=== PATIENT | male | born 1980 | race Caucasian/White ===

== ENCOUNTER 2016-11-13 07:38 | Emergency (ER) | payer OTHER ==
[~2016-11-13] VITALS: Ht 198.1 cm; Wt 130.0 kg
[~2016-11-13 07:38] MED LIST: PERC7.5T13 PO; ROBA750T3 PO; Z.0.NO CURRENT MEDS
[2016-11-13 07:40] VITALS: BP 176/87; PULSE 98; RESP 16; TEMP 98; O2SAT 100
[2016-11-13] MEDS ORDERED: SODIUM CHLOR 0.9% 1000 ML INJ 1,000 ML IV SCH (07:51)
--- NOTE | 2016-11-13 07:53 | PD ---
HPI Chief Complaint: Abdominal Pain Time Seen by Provider: 07:48 Travel History International Travel<30 days: No Contact w/Intl Traveler<30days: No Traveled to known affect area: No History of Present Illness HPI 36-year-old male here for evaluation of lower abdominal pain. The patient reports having lower abdominal discomfort for the last 2 days which has been intermittent, now constant. Pain is sharp, moderate, worse with movement and palpation. Last bowel movement was this morning and was normal. He denies fevers or chills. No nausea or vomiting. No urinary symptoms. No history of abdominal surgeries. [facility] Past Medical History Hypertension: Yes Social History Alcohol Use: Yes (RARELY) Tobacco Use: No (RECENTLY QUIT) Allergies-Medications (Allergen,Severity, Reaction): Coded Allergies: No Known Allergies (Verified , 11/13/16) Reported Meds & Prescriptions Reported Meds & Active Scripts Active No Active Prescriptions or Reported Medications Review of Systems Except as stated in HPI: all other systems reviewed are Neg Physical Exam Narrative GENERAL: Well-developed, well-nourished, no acute distress. SKIN: Warm and dry. HEAD: Atraumatic. Normocephalic. EYES: Pupils equal and round. No scleral icterus. No injection or drainage. ENT: Mucous membranes pink and moist. CARDIOVASCULAR: Regular rate and rhythm. RESPIRATORY: No accessory muscle use. Clear to auscultation. Breath sounds equal bilaterally. GASTROINTESTINAL: Abdomen soft, nondistended. Moderate suprapubic and right lower quadrant tenderness without peritoneal signs. Rest of abdomen is soft and nontender. Small umbilical hernia that is easily reducible. No other hernias. Normal bowel sounds. MUSCULOSKELETAL: No obvious deformities. No clubbing. No cyanosis. No edema. NEUROLOGICAL: Awake and alert. No obvious cranial nerve deficits. Motor grossly within normal limits. Normal speech. PSYCHIATRIC: Appropriate mood and affect; insight and judgment normal. Data Data Last Documented VS Vital Signs Date Time Temp Pulse Resp B/P Pulse Ox O2 Delivery O2 Flow Rate FiO2 11/13/16 07:40 98.0 98 16 176/87 100 Room Air Orders Complete Blood Count With Diff (11/13/16 07:51) Comprehensive Metabolic Panel (11/13/16 07:51) Lipase (11/13/16 07:51) Prothrombin Time / Inr (Pt) (11/13/16 07:51) Act Partial Throm Time (Ptt) (11/13/16 07:51) Urinalysis - C+S If Indicated (11/13/16 07:51) Ct Abd/Pel W Iv Contrast(Rout) (11/13/16 07:51) Iv Access Insert/Monitor (11/13/16 07:51) Ecg Monitoring (11/13/16 07:51) Oximetry (11/13/16 07:51) Morphine Inj (Morphine Inj) (11/13/16 08:00) Sodium Chlor 0.9% 1000 Ml Inj (Ns 1000 M (11/13/16 07:51) Sodium Chloride 0.9% Flush (Ns Flush) (11/13/16 08:00) Iohexol 350 Inj (Omnipaque 350 Inj) (11/13/16 09:18) Labs Laboratory Tests Test 11/13/16 11/13/16 08:05 08:47 White Blood Count 13.7 TH/MM3 Red Blood Count 5.17 MIL/MM3 Hemoglobin 15.4 GM/DL Hematocrit 44.1 % Mean Corpuscular Volume 85.3 FL Mean Corpuscular Hemoglobin 29.7 PG Mean Corpuscular Hemoglobin 34.9 % Concent Red Cell Distribution Width 13.3 % Platelet Count 238 TH/MM3 Mean Platelet Volume 8.8 FL Neutrophils (%) (Auto) 69.7 % Lymphocytes (%) (Auto) 19.6 % Monocytes (%) (Auto) 9.9 % Eosinophils (%) (Auto) 0.1 % Basophils (%) (Auto) 0.7 % Neutrophils # (Auto) 9.5 TH/MM3 Lymphocytes # (Auto) 2.7 TH/MM3 Monocytes # (Auto) 1.4 TH/MM3 Eosinophils # (Auto) 0.0 TH/MM3 Basophils # (Auto) 0.1 TH/MM3 CBC Comment DIFF FINAL Differential Comment Prothrombin Time 10.6 SEC Prothromb Time International 1.0 RATIO Ratio Activated Partial 29.0 SEC Thromboplast Time Sodium Level 136 MEQ/L Potassium Level 3.7 MEQ/L Chloride Level 101 MEQ/L Carbon Dioxide Level 27.5 MEQ/L Anion Gap 8 MEQ/L Blood Urea Nitrogen 14 MG/DL Creatinine 1.14 MG/DL Estimat Glomerular Filtration 74 ML/MIN Rate Random Glucose 134 MG/DL Calcium Level 9.1 MG/DL Total Bilirubin 1.2 MG/DL Aspartate Amino Transf 19 U/L (AST/SGOT) Alanine Aminotransferase 55 U/L (ALT/SGPT) Alkaline Phosphatase 75 U/L Total Protein 8.5 GM/DL Albumin 4.0 GM/DL Lipase 117 U/L Urine Color YELLOW Urine Turbidity CLEAR Urine pH 6.0 Urine Specific Edgar 1.016 Urine Protein NEG mg/dL Urine Glucose (UA) NEG mg/dL Urine Ketones NEG mg/dL Urine Occult Blood NEG Urine Nitrite NEG Urine Bilirubin NEG Urine Urobilinogen LESS THAN 2.0 MG/DL Urine Leukocyte Esterase NEG Urine RBC LESS THAN 1 /hpf Urine WBC LESS THAN 1 /hpf Urine Mucus FEW /lpf Microscopic Urinalysis Comment CULT NOT INDICATED MDM Medical Decision Making Medical Screen Exam Complete: Yes Emergency Medical Condition: Yes Differential Diagnosis Appendicitis, colitis, diverticulitis, cystitis, UTI, nephrolithiasis Narrative Course Vital signs reviewed. CBC shows WBC 13.7, hemoglobin 15.4, hematocrit 44.1, platelets 238 CMP is unremarkable. Lipase is 117. UA is not suggestive of UTI. CT abdomen pelvis: 1. Pericolic inflammatory changes surrounding the mid sigmoid colon with focal wall thickening suggesting acute diverticulitis or colitis. Clinical correlation is recommended. 2. Enlarged fatty liver. 3. Mild splenomegaly. Patient was made aware of all findings. He is resting comfortably. No peritoneal signs on exam. He is stable to be treated as an outpatient with oral antibiotics. He was informed to follow up with his primary care physician this week for GI referral for colonoscopy. He was informed on when to return to the emergency department. He verbalizes understanding and agreement with plan. Diagnosis Primary Impression: Sigmoid diverticulitis Referrals: Primary Care Physician 3 days Additional Instructions: Follow-up with your primary care physician this week. Follow-up with a research archaeologist in the next 1-2 weeks. Take antibiotics as prescribed. Increase fiber in your diet. Start probiotics while on antibiotics. Return to the emergency department for worsening symptoms or any other concerns. Scripts Oxycodone-Acetaminophen (Percocet)10-325 mg Tab1 Tab PO Q6H PRN (PAIN) #20 TAB Ref 0 Prov:Gerhard Hernandez MD 11/13/16 Metronidazole (Flagyl)500 Mg [id number] Mg PO BID 10 Days Ref 0 Prov:Gerhard Hernandez MD 11/13/16 Ciprofloxacin (Cipro)500 Mg [id number] Mg PO BID 10 Days Ref 0 Prov:Gerhard Hernandez MD 11/13/16 Disposition: 01 DISCHARGE HOME Condition: Stable Gerhard Hernandez MD Nov 13, 2016 07:53
[2016-11-13] MEDS ORDERED: MORPHINE SULFATE 4 MG/ML INJ IV PUSH ONE (08:00)
[2016-11-13] MEDS ORDERED: SODIUM CHLORIDE 0.9% FLUSH 10 ML FLUSH IV FLUSH PRN (08:00)
[2016-11-13 08:29] LABS: AUTOMATED NEUTROPHIL # 9.5 TH/MM3 (1.8-7.7); BASOPHIL # 0.1 TH/MM3 (0-0.2); BASOPHIL % 0.7 % (0.0-2.0); EOSINOPHIL % 0.1 % (0.0-4.0); HEMATOCRIT 44.1 % (39.0-51.0); HEMO FLAGS DIFF FINAL; LYMPH % 19.6 % (9.0-44.0); LYMPHOCYTE # 2.7 TH/MM3 (1.0-4.8); MEAN CELL VOLUME 85.3 FL (80.0-100.0); MEAN CORPUSCULAR HEMOGLOBIN 29.7 PG (27.0-34.0); MEAN CORPUSCULAR HGB CONC 34.9 % (32.0-36.0); MONO % 9.9 % (0.0-8.0); NEUT % 69.7 % (16.0-70.0); PLATELET COUNT 238 TH/MM3 (150-450); RED BLOOD COUNT 5.17 MIL/MM3 (4.50-5.90); RED CELL DISTRIBUTION WIDTH 13.3 % (11.6-17.2); WHITE BLOOD COUNT 13.7 TH/MM3 (4.0-11.0)
[2016-11-13 08:34] LABS: PROTHROMBIN TIME - PATIENT 10.6 SEC (9.8-11.6)
[2016-11-13 08:41] LABS: ANION GAP 8 MEQ/L (5-15); AST (GOT) 19 U/L (15-37); BICARBONATE 27.5 MEQ/L (21.0-32.0); BLOOD UREA NITROGEN 14 MG/DL (7-18); CHLORIDE 101 MEQ/L (98-107); GLOMERULAR FILTRATION RATE 74 ML/MIN (>89); POTASSIUM 3.7 MEQ/L (3.5-5.1); SODIUM (NA) 136 MEQ/L (136-145)
[2016-11-13 08:44] LABS: ALKALINE PHOSPHATASE 75 U/L (45-117); ALT (GPT) 55 U/L (12-78); TOTAL BILIRUBIN ADULT 1.2 MG/DL (0.2-1.0)
[2016-11-13 09:13] LABS: BLOOD, URINE NEG (NEG); COMMENT (UR) CULT NOT INDICATED; CULTURE IF INDICATED CULT NOT INDICATED; GLUCOSE,URINE NEG (NEG); KETONE, URINE NEG (NEG); MUCUS URINE FEW /lpf (OCC); NITRITE,URINE NEG (NEG); URINE COLOR YELLOW (YELLW/STRAW)
[2016-11-13] MEDS ORDERED: IOHEXOL 350 MG/ML 10 ML VIAL (for RAD DIAG) IV ONE (09:18)
--- NOTE | 2016-11-13 09:59 | RADRPT ---
EXAM DATE/TIME: 11/13/2016 08:59 [facility] COMPARISON: No previous studies available for comparison. INDICATIONS: Lower abdominal pain. IV CONTRAST: 69 cc Omnipaque 350 (iohexol) IV ORAL CONTRAST: No oral contrast ingested. RADIATION DOSE: 23.09 CTDIvol (mGy) MEDICAL HISTORY: Hypertension. SURGICAL HISTORY: None. ENCOUNTER: Initial ACUITY: 2 days PAIN SCALE: 3/10 LOCATION: Bilateral lower quadrant TECHNIQUE: Volumetric scanning of the abdomen and pelvis was performed. Using automated exposure control and ad justment of the mA and/or kV according to patient size, radiation dose was kept as low as reasonably achievable to obtain optimal diagnostic quality images. FINDINGS: Pericolic inflammatory changes are noted surrounding a thickened loop of mid sigmoid colon suggestive of acute diverticulitis or colitis. Clinical correlation is recommended. No pericolic abscess is n oted. No free intraperitoneal air is noted. The liver is enlarged. Diffuse fatty infiltration is noted. There is no focal hepatic mass. No alea iary ductal dilatation is noted. The gallbladder is unremarkable. The spleen is mildly enlarged. T he pancreas is normal. The adrenal glands are normal bilaterally. The kidneys enhance briskly and d emonstrate no evidence of focal mass or hydronephrosis. The abdominal aorta and inferior vena cava a re normal. There is no paraaortic, retroperitoneal or mesenteric lymphadenopathy. The urinary bladd er is unremarkable. The prostate gland is normal. No pelvic lymphadenopathy is noted. No ascites i s noted. The visualized lung bases are clear. Mild scoliosis of the lumbar spine is noted. CONCLUSION: 1. Pericolic inflammatory changes surrounding the mid sigmoid colon with focal wall thickening sugge sting acute diverticulitis or colitis. Clinical correlation is recommended. 2. Enlarged fatty liver. 3. Mild splenomegaly. Devendra Henderson MD on November 13, 2016 at 9:32 Board Certified Radiologist. This report was verified electronically.
[2016-11-13] MEDS ORDERED: CIPR-9 PO (10:10)
[2016-11-13] MEDS ORDERED: METR-1 PO (10:10)
[2016-11-13] MEDS ORDERED: PERC10TA27 PO (10:10)
[2016-11-13] MEDS ORDERED: CIPROFLOXACIN 500 MG TAB PO ONE (10:15)
[2016-11-13] MEDS ORDERED: metroNIDAZOLE 500 MG TAB PO ONE (10:15)
[2016-11-13] MEDS ORDERED: KETOROLAC TROMETHAMINE 30 MG/ML (IVP) VIAL IV PUSH ONE (10:15)
[2016-11-13 10:35] VITALS: BP 126/75; PULSE 82; RESP 16; O2SAT 94
== END 2016-11-13 10:50 | disposition home or self-care (01) ==
LOC: NEPC 07:38
DX: K57.32 Diverticulitis of large intestine without perforation or abscess without bleeding (principal); I10 Essential (primary) hypertension; Z87.891 Personal history of nicotine dependence
CPT/HCPCS: 74177; 80053; 81001; 83690; 85025; 85610; 85730; 96361; 96374; 96375; 99284; J1885; J2270; J7030; Q9967

== ENCOUNTER 2017-01-28 14:58 | Emergency (ER) | payer OTHER ==
[~2017-01-28 14:58] MED LIST changes: +CIPR-9 PO; +METR-1 PO; +PERC10TA27 PO; -PERC7.5T13 PO; -ROBA750T3 PO; -Z.0.NO CURRENT MEDS
[2017-01-28 15:05] VITALS: BP 160/100; PULSE 67; RESP 17; TEMP 98
[2017-01-28] MEDS ORDERED: SODIUM CHLORIDE 0.9% FLUSH 10 ML FLUSH IV FLUSH PRN (15:45)
--- NOTE | 2017-01-28 15:53 | PD ---
HPI Chief Complaint: GI Complaint Time Seen by Provider: 15:37 Travel History International Travel<30 days: No Contact w/Intl Traveler<30days: No Traveled to known affect area: No History of Present Illness HPI This is a 36-year-old male who presents to the emergency department with left- sided abdominal pain that woke him up from sleep at 4:00 in the morning, constant, 5 out of 10, associated with some bloody stools. He says he had some bright red blood around his stools. He denies any fever or chills and denies any vomiting. He says he had very similar symptoms about 2 months ago when he was diagnosed at that time with sigmoid diverticulitis. He also had some rectal bleeding at that time also. He had a colonoscopy done in [facility] and was told that he has diverticulosis and hemorrhoids. He's been feeling fine until this incident. He says that currently his symptoms don't feel as bad as when they did when he came in last time and he was hoping to catch it early. [facility] Past Medical History Diminished Hearing: No Gastrointestinal Disorders: Yes (DIVERTICULOSIS) Hypertension: Yes ?: Not Past Surgical History Surgical History: No Previous Surgery Social History Alcohol Use: Yes (RARELY) Tobacco Use: No Substance Use: Yes (POT) Allergies-Medications (Allergen,Severity, Reaction): Coded Allergies: No Known Allergies (Verified , 01/28/17) Reported Meds & Prescriptions Reported Meds & Active Scripts Active No Active Prescriptions or Reported Medications Review of Systems Except as stated in HPI: all other systems reviewed are Neg Physical Exam Narrative GENERAL:Well appearing, no acute distress SKIN: Focused skin assessment warm and dry. HEAD: Atraumatic. Normocephalic. EYES: Pupils equal and round. No injection or drainage. ENT: Moist mucous membranes NECK: Trachea midline. CARDIOVASCULAR: Regular rate and rhythm. No murmur appreciated. RESPIRATORY: Clear to auscultation. Breath sounds equal bilaterally. GASTROINTESTINAL: Abdomen soft, mildly tender to palpation in the left mid abdomen with no rebound or guarding. MUSCULOSKELETAL: No obvious deformities. NEUROLOGICAL: Awake and alert. No obvious cranial nerve deficits. Moving all extremities. PSYCHIATRIC: Appropriate mood and affect; insight and judgment normal. Data Data Last Documented VS Vital Signs Date Time Temp Pulse Resp B/P Pulse Ox O2 Delivery O2 Flow Rate FiO2 01/28/17 15:05 98.0 67 17 160/100 98 Orders Complete Blood Count With Diff (01/28/17 15:38) Comprehensive Metabolic Panel (01/28/17 15:38) Iv Access Insert/Monitor (01/28/17 15:38) Ecg Monitoring (01/28/17 15:38) Oximetry (01/28/17 15:38) Sodium Chloride 0.9% Flush (Ns Flush) (01/28/17 15:45) MDM Medical Decision Making Medical Screen Exam Complete: Yes Emergency Medical Condition: Yes Interpretation(s) Afebrile, no tachycardia, hypertensive Differential Diagnosis Diverticulitis, colitis, pancreatitis, nephrolithiasis Narrative Course This is a 36-year-old male who has a history of diverticulosis who presents to the emergency department with left-sided abdominal discomfort and some blood from his rectum. He has a benign abdominal exam. He is well-appearing with no fever. I think if his labs are reassuring he can be discharged with empiric treatment for early diverticulitis. I discussed with him the risks versus benefits of CT imaging and I think at this time given his age the risk outweighs the benefit. I asked him to return to the emergency department if he feels sicker. I also instructed him to follow up with an outpatient GI physician. Diagnosis Primary Impression: Diverticulitis Qualified Code: K57.93 - Diverticulitis of intestine without perforation or abscess with bleeding, unspecified part of intestinal tract Patient Instructions: General Instructions Additional Instructions: Sometimes patients with diverticulitis require admission to the hospital for IV antibiotics. If you develop worsening or severe abdominal pain, persistent fevers, or inability to drink return to the emergency department. Follow a clear liquid diet for 3 days until you notice your symptoms improving, then slowly advance your diet. Complete your course of antibiotics. Follow up with your primary care physician as soon as possible to ensure you are improving. Med/Other Pt SpecificInfo: Prescription(s) given Scripts Ciprofloxacin (Cipro)500 Mg [id number] Mg PO BID 10 Days Ref 0 Prov:Latia Pollack MD 01/28/17 Metronidazole (Flagyl)500 Mg [id number] Mg PO BID 10 Days Ref 0 Prov:Latia Pollack MD 01/28/17 Disposition: 01 DISCHARGE HOME Condition: Stable Latia Pollack MD Jan 28, 2017 15:53
[2017-01-28] MEDS ORDERED: CIPR-9 PO (15:56)
[2017-01-28] MEDS ORDERED: METR-1 PO (15:56)
[2017-01-28 16:05] VITALS: O2SAT 98
[2017-01-28] MEDS ORDERED: KETOROLAC TROMETHAMINE 30 MG/ML (IVP) VIAL IV PUSH ONE (16:15)
[2017-01-28 16:24] LABS: AUTOMATED NEUTROPHIL # 6.5 TH/MM3 (1.8-7.7); BASOPHIL # 0.1 TH/MM3 (0-0.2); BASOPHIL % 0.6 % (0.0-2.0); EOSINOPHIL # 0.1 TH/MM3 (0-0.4); EOSINOPHIL % 1.2 % (0.0-4.0); HEMATOCRIT 44.4 % (39.0-51.0); HEMO FLAGS DIFF FINAL; LYMPH % 24.8 % (9.0-44.0); LYMPHOCYTE # 2.5 TH/MM3 (1.0-4.8); MEAN CELL VOLUME 86.7 FL (80.0-100.0); MEAN CORPUSCULAR HGB CONC 33.4 % (32.0-36.0); NEUT % 66.4 % (16.0-70.0); PLATELET COUNT 246 TH/MM3 (150-450); RED BLOOD COUNT 5.12 MIL/MM3 (4.50-5.90); RED CELL DISTRIBUTION WIDTH 13.4 % (11.6-17.2); WHITE BLOOD COUNT 9.9 TH/MM3 (4.0-11.0)
[2017-01-28 16:31] LABS: CHLORIDE 104 MEQ/L (98-107); POTASSIUM 3.7 MEQ/L (3.5-5.1); SODIUM (NA) 140 MEQ/L (136-145)
[2017-01-28 16:35] LABS: ANION GAP 6 MEQ/L (5-15); BICARBONATE 29.6 MEQ/L (21.0-32.0); BLOOD UREA NITROGEN 12 MG/DL (7-18)
[2017-01-28 16:38] LABS: ALT (GPT) 53 U/L (12-78); AST (GOT) 23 U/L (15-37); GLOMERULAR FILTRATION RATE 89 ML/MIN (>89)
[2017-01-28 16:40] LABS: TOTAL BILIRUBIN ADULT 0.5 MG/DL (0.2-1.0)
[2017-01-28 16:41] LABS: ALKALINE PHOSPHATASE 68 U/L (45-117)
[2017-01-28] MEDS ORDERED: PERC10TA27 PO (16:49)
--- NOTE | 2017-01-28 16:50 | PD ---
Physical Exam Date Seen by Provider: Jan 28, 2017 Time Seen by Provider: 16:47 Narrative 36-year-old male who presented with left lower quadrant pain. He has recently been treated for diverticulitis. He has had a follow-up colonoscopy. He was seen initially by Dr. Springer who ordered blood work. His white count is coming back at 9.7. Patient says that this episode is not nearly as bad as his previous episode. His abdominal exam shows minimal left lower quadrant tenderness. Patient is a good candidate for outpatient treatment. Dr. Boyle is written prescriptions for Cipro and Flagyl. He does say that he had taken some oxycodone for pain and his last episode and I'll prescribe her a few tablets. He is stable for discharge Data Data Last Documented VS Vital Signs Date Time Temp Pulse Resp B/P Pulse Ox O2 Delivery O2 Flow Rate FiO2 01/28/17 16:05 98 Room Air 01/28/17 15:05 98.0 67 17 160/100 98 Orders Complete Blood Count With Diff (01/28/17 15:38) Comprehensive Metabolic Panel (01/28/17 15:38) Iv Access Insert/Monitor (01/28/17 15:38) Ecg Monitoring (01/28/17 15:38) Oximetry (01/28/17 15:38) Sodium Chloride 0.9% Flush (Ns Flush) (01/28/17 15:45) Ketorolac Inj (Toradol Inj) (01/28/17 16:15) Labs Laboratory Tests Test 01/28/17 16:00 White Blood Count 9.9 TH/MM3 Red Blood Count 5.12 MIL/MM3 Hemoglobin 14.8 GM/DL Hematocrit 44.4 % Mean Corpuscular Volume 86.7 FL Mean Corpuscular Hemoglobin 29.0 PG Mean Corpuscular Hemoglobin 33.4 % Concent Red Cell Distribution Width 13.4 % Platelet Count 246 TH/MM3 Mean Platelet Volume 8.5 FL Neutrophils (%) (Auto) 66.4 % Lymphocytes (%) (Auto) 24.8 % Monocytes (%) (Auto) 7.0 % Eosinophils (%) (Auto) 1.2 % Basophils (%) (Auto) 0.6 % Neutrophils # (Auto) 6.5 TH/MM3 Lymphocytes # (Auto) 2.5 TH/MM3 Monocytes # (Auto) 0.7 TH/MM3 Eosinophils # (Auto) 0.1 TH/MM3 Basophils # (Auto) 0.1 TH/MM3 CBC Comment DIFF FINAL Differential Comment Sodium Level 140 MEQ/L Potassium Level 3.7 MEQ/L Chloride Level 104 MEQ/L Carbon Dioxide Level 29.6 MEQ/L Anion Gap 6 MEQ/L Blood Urea Nitrogen 12 MG/DL Creatinine 0.97 MG/DL Estimat Glomerular Filtration 89 ML/MIN Rate Random Glucose 95 MG/DL Calcium Level 9.1 MG/DL Total Bilirubin 0.5 MG/DL Aspartate Amino Transf 23 U/L (AST/SGOT) Alanine Aminotransferase 53 U/L (ALT/SGPT) Alkaline Phosphatase 68 U/L Total Protein 7.7 GM/DL Albumin 3.9 GM/DL [facility] Medical Record Reviewed: Yes Supervised Visit with CARTER: No Differential Diagnosis Differential includes diverticulitis, diverticulosis Narrative Course Pain is suggestive of diverticulitis in this gentleman certainly be disposed as he has recently had a bout and is known to have diverticulosis. Diagnosis Primary Impression: Diverticulitis Qualified Code: K57.93 - Diverticulitis of intestine without perforation or abscess with bleeding, unspecified part of intestinal tract Patient Instructions: General Instructions Additional Instruction: Sometimes patients with diverticulitis require admission to the hospital for IV antibiotics. If you develop worsening or severe abdominal pain, persistent fevers, or inability to drink return to the emergency department. Follow a clear liquid diet for 3 days until you notice your symptoms improving, then slowly advance your diet. Complete your course of antibiotics. Follow up with your primary care physician as soon as possible to ensure you are improving. Scripts Oxycodone-Acetaminophen (Percocet)10-325 mg Tab1 Tab PO Q4H PRN (PAIN) #10 TAB Ref 0 Prov:Chino Sin MD 01/28/17 Ciprofloxacin (Cipro)500 Mg [id number] Mg PO BID 10 Days Ref 0 Prov:Latia Pollack MD 01/28/17 Metronidazole (Flagyl)500 Mg [id number] Mg PO BID 10 Days Ref 0 Prov:Latia Pollack MD 01/28/17 Disposition: 01 DISCHARGE HOME Condition: Stable Chino Sin MD Jan 28, 2017 16:50
== END 2017-01-28 16:58 | disposition home or self-care (01) ==
LOC: PHED 14:58
DX: K57.93 Diverticulitis of intestine, part unspecified, without perforation or abscess with bleeding (principal); I10 Essential (primary) hypertension
CPT/HCPCS: 80053; 85025; 96374; 99284; J1885